=== PATIENT | female | born 1990 | race African-American/Black ===

== ENCOUNTER 2018-01-09 11:40 | Emergency (ER) | payer SELFPAY ==
[~2018-01-09] VITALS: Ht 157.5 cm; Wt 52.2 kg
[2018-01-09] MEDS ORDERED: TYLENOL EXTRA500 MG ORAL (14:02)
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
[2018-01-09] MEDS ORDERED: BACTRIM DS TAB1 EAC1 ORAL (14:05)
[2018-01-09] MEDS ORDERED: Tetanus/Diptheria/Pertussis Vaccine 0.5ml Syr IM ONE (14:15)
[2018-01-09] MEDS ORDERED: Bacitracin Oint UD TOPIC ONE (14:30)
[2018-01-09 14:45] VITALS: BP 115/80
[2018-01-09] MEDS ORDERED: BACITRACIN-P28.35 GM TP (15:05)
--- NOTE | 2018-01-09 15:59 | Diagnostic Imaging Report ---
Indication: Pain, status post fall Technique: 3 views of the left knee Comparison: None Findings: No acute fractures. No dislocations. Joint spaces are preserved. Impression: Negative
== END 2018-01-09 14:45 | disposition home or self-care (01) ==
LOC: EMR 13:45
DX: S80.211A Abrasion, right knee, initial encounter (principal); Z23 Encounter for immunization; Y04.2XXA Assault by strike against or bumped into by another person, initial encounter
CPT/HCPCS: 90471; 90715; 99284